=== PATIENT | female | born 1945 | race Caucasian/White ===

== ENCOUNTER 2021-12-28 13:28 | Inpatient (IN) | payer MEDICARE, BC ==
[~2021-12-28 13:28] MED LIST: Iopamidol 370 76% 100 ML VIAL ONE
[2021-12-28 13:47] LABS: #Eosinphils 0.1 thou/uL (0.0-0.7); #Lymphocytes 1.7 thou/uL (1.20-3.40); #Monocytes 0.3 thou/uL (0.11-0.59); #Neutrophils 2.7 thou/uL (1.40-6.50); %Basophils 0.6 % (0.0-1.0); %Eosinophils 1.2 % (0.0-10.0); %Lymphocytes 35.7 % (21.0-51.0); %Monocytes 7.1 % (0.0-10.0); %Neutrophils 55.5 % (42.0-75.0); Hemoglobin 13.1 g/dL (12.0-16.0); Mean Corpuscular HGB CONC 32.9 g/dL (32.0-36.0); Mean Corpuscular Hemoglobin 30.2 pg (27.0-31.0); Mean Corpuscular Volume 91.9 fL (78.0-98.0); Mean Platelet Volume 7.1 fL (7.4-10.4); Platelet Count 200 thou/uL (130-400); RBC Distribution Width 12.2 % (11.5-14.5); Red Blood Cell (RBC) Count 4.32 mill/uL (4.20-5.40); White Blood Cell (WBC) Count 4.8 thou/uL (4.8-10.8)
[2021-12-28] MEDS ORDERED: Atropine Sulfate 1 mg/10 ml Syringe ONE (13:51)
[2021-12-28] MEDS ORDERED: DOPamine 400 MG/D5W 250 ML 0 ML ONE (14:02)
[2021-12-28 14:03] LABS: PTT 24.3 sec (22.9-36.1); Prothrombin Time 13.1 sec (12.0-14.7)
[2021-12-28 14:09] LABS: ALT (SGPT) 48 U/L (8-55); AST (SGOT) 44 U/L (5-34); Albumin 4.3 g/dL (3.4-4.8); Alkaline Phosphatase 67 U/L (40-110); Anion Gap 19 mmol/L (10-20); BUN (Urea Nitrogen) 16 mg/dL (9.8-20.1); Bilirubin, Total 0.8 mg/dL (0.2-1.2); CK (CPK) 115 U/L (29-168); Calc. Creatinine Clearance 0 mL/min (70-130); Calcium 9.3 mg/dL (7.8-10.44); Carbon Dioxide 18 mmol/L (23-31); Chloride 104 mmol/L (98-107); Globulin 2.6 g/dL (2.4-3.5); Glucose 160 mg/dL (83-110); Lipase 23 U/L (8-78); Potassium 3.6 mmol/L (3.5-5.1); Protein, Total 6.9 g/dL (5.8-8.1); Sodium 137 mmol/L (136-145)
[2021-12-28] MEDS ORDERED: Nitroglycerin 100MG/250ML BOT 250 ML ONE (14:12)
[2021-12-28 14:17] LABS: #Eosinphils 0.1 thou/uL (0.0-0.7); #Lymphocytes 0.8 thou/uL (1.20-3.40); #Monocytes 0.3 thou/uL (0.11-0.59); #Neutrophils 3.9 thou/uL (1.40-6.50); %Basophils 0.6 % (0.0-1.0); %Eosinophils 1.2 % (0.0-10.0); %Lymphocytes 16.1 % (21.0-51.0); %Monocytes 5.3 % (0.0-10.0); %Neutrophils 76.8 % (42.0-75.0); Hemoglobin 12.5 g/dL (12.0-16.0); Mean Corpuscular HGB CONC 33.3 g/dL (32.0-36.0); Mean Corpuscular Hemoglobin 30.4 pg (27.0-31.0); Mean Corpuscular Volume 91.4 fL (78.0-98.0); Mean Platelet Volume 6.9 fL (7.4-10.4); Platelet Count 190 thou/uL (130-400); RBC Distribution Width 12.2 % (11.5-14.5); Red Blood Cell (RBC) Count 4.11 mill/uL (4.20-5.40); White Blood Cell (WBC) Count 5.1 thou/uL (4.8-10.8)
[2021-12-28] MEDS ORDERED: Nitroglycerin 50 MG/250 ML BOT 250 ML ONE (15:47)
[2021-12-28] MEDS ORDERED: Ondansetron PF 4 MG/2 ML Vial IVP PRN (15:55)
[2021-12-28] MEDS ORDERED: Ondansetron ODT 4 MG TAB PO PRN (15:55)
[2021-12-28] MEDS ORDERED: Senokot S 8.6-50 MG TAB PO PRN (15:55)
[2021-12-28] MEDS ORDERED: Aspirin 81 mg Enteric Coated Tablet PO SCH (16:00)
[2021-12-28] MEDS ORDERED: Clopidogrel Bisulfate 300 MG TAB PO SCH (16:00)
[2021-12-28] MEDS ORDERED: Acetaminophen/Codeine 30-300mg Tablet PO PRN ×2 (16:01)
[2021-12-28] MEDS ORDERED: Nitroglycerin 0.4 MG TAB (25 Tab Bottle) SL PRN (16:01)
[2021-12-28] MEDS ORDERED: Sodium Chloride 0.9% 200 ML IV PRN (16:01)
[2021-12-28 16:10] VITALS: BMI 25.0
[2021-12-28] MEDS ORDERED: Nitroglycerin 50 MG/250 ML BOT 250 ML IVPB SCH (16:30)
[2021-12-28] MEDS: Sodium Chloride 0.9% 1,000 ML IV SCH ×2 (16:43→22:24)
[2021-12-28 17:52] LABS: SARS-CoV-2 NAA Rapid Test Not Detected (NotDetected)
[2021-12-28] MEDS: Acetaminophen 325 MG TAB PO PRN ×2 (18:12→22:22)
[2021-12-28 18:52] LABS: Troponin I 0.542 ng/mL (< 0.028)
[2021-12-28] MEDS: traMADol HCl 50 MG TAB PO PRN (20:17)
[2021-12-28] MEDS: Lisinopril 5 MG TAB PO SCH (20:18)
[2021-12-28] MEDS: Famotidine 20 MG TAB PO SCH (20:19)
[2021-12-28] MEDS: Rosuvastatin 20 MG TAB PO SCH (20:19)
[2021-12-28] MEDS: Famotidine/PF 20 mg/2ml Vial SLOW IVP SCH (20:20)
[2021-12-29] MEDS: Acetaminophen 325 MG TAB PO PRN ×3 (02:19→17:26)
[2021-12-29 04:22] LABS: #Basophils 0.1 thou/uL (0.0-0.2); #Lymphocytes 0.9 thou/uL (1.20-3.40); #Monocytes 0.5 thou/uL (0.11-0.59); #Neutrophils 4.9 thou/uL (1.40-6.50); %Basophils 1.4 % (0.0-1.0); %Eosinophils 0.4 % (0.0-10.0); %Lymphocytes 14.6 % (21.0-51.0); %Monocytes 7.7 % (0.0-10.0); Hemoglobin 11.5 g/dL (12.0-16.0); Mean Corpuscular HGB CONC 34.1 g/dL (32.0-36.0); Mean Corpuscular Hemoglobin 31.4 pg (27.0-31.0); Mean Corpuscular Volume 91.9 fL (78.0-98.0); Mean Platelet Volume 6.6 fL (7.4-10.4); Platelet Count 178 thou/uL (130-400); RBC Distribution Width 12.1 % (11.5-14.5); Red Blood Cell (RBC) Count 3.67 mill/uL (4.20-5.40); White Blood Cell (WBC) Count 6.4 thou/uL (4.8-10.8)
[2021-12-29 04:29] LABS: Hemoglobin A1c 5.4 % (4.0-6.0)
[2021-12-29 04:46] LABS: ALT (SGPT) 42 U/L (8-55); AST (SGOT) 77 U/L (5-34); Albumin 3.6 g/dL (3.4-4.8); Alkaline Phosphatase 51 U/L (40-110); Anion Gap 13 mmol/L (10-20); BUN (Urea Nitrogen) 11 mg/dL (9.8-20.1); Bilirubin, Total 0.7 mg/dL (0.2-1.2); Calc. Creatinine Clearance 72 mL/min (70-130); Calcium 8.3 mg/dL (7.8-10.44); Carbon Dioxide 21 mmol/L (23-31); Cardiac Risk 3.3 (Less than 4.5); Chloride 104 mmol/L (98-107); Cholesterol 168 mg/dl (< 200 Desired); Globulin 2.1 g/dL (2.4-3.5); Glucose 125 mg/dL (83-110); HDL Cholesterol 51 mg/dL (>60 Neg Risk); LDL Cholesterol, Calculated 100 mg/dL; Potassium 3.5 mmol/L (3.5-5.1); Protein, Total 5.7 g/dL (5.8-8.1); Sodium 134 mmol/L (136-145); Triglycerides 84 mg/dL (Less than 150)
[2021-12-29] MEDS ORDERED: Ketorolac Tromethamine 30 MG/ML VIAL IVP SCH ×2 (08:45→15:45)
[2021-12-29 09:20] LABS: Troponin I 10.765 ng/mL (< 0.028)
[2021-12-29] MEDS: Lisinopril 5 MG TAB PO SCH ×2 (09:37→20:45)
[2021-12-29] MEDS: Clopidogrel Bisulfate 75 MG TAB PO SCH (09:37)
[2021-12-29] MEDS: Aspirin 81 mg Enteric Coated Tablet PO SCH (09:38)
[2021-12-29] MEDS: Famotidine 20 MG TAB PO SCH ×2 (09:38→20:45)
[2021-12-29] MEDS: Famotidine/PF 20 mg/2ml Vial SLOW IVP SCH (09:45)
[2021-12-29] MEDS: Rosuvastatin 20 MG TAB PO SCH (20:44)
[2021-12-30] MEDS: Levothyroxine 175 MCG TAB PO SCH (05:27)
[2021-12-30] MEDS: Lisinopril 5 MG TAB PO SCH ×2 (09:00→22:03)
[2021-12-30] MEDS: Aspirin 81 mg Enteric Coated Tablet PO SCH (09:00)
[2021-12-30] MEDS: Famotidine 20 MG TAB PO SCH ×2 (09:00→22:08)
[2021-12-30] MEDS: Clopidogrel Bisulfate 75 MG TAB PO SCH (09:01)
[2021-12-30] MEDS: Enoxaparin Sodium 30 MG/0.3 ML SYRINGE SC SCH (09:01)
[2021-12-30] MEDS: Acetaminophen 325 MG TAB PO PRN ×2 (12:30→22:04)
[2021-12-30] MEDS: Rosuvastatin 20 MG TAB PO SCH (22:03)
[2021-12-31] MEDS: Levothyroxine 175 MCG TAB PO SCH (06:12)
[2021-12-31] MEDS: Aspirin 81 mg Enteric Coated Tablet PO SCH (10:01)
[2021-12-31] MEDS: Lisinopril 5 MG TAB PO SCH ×2 (10:01→21:53)
[2021-12-31] MEDS: Famotidine 20 MG TAB PO SCH ×2 (10:01→21:52)
[2021-12-31] MEDS: Clopidogrel Bisulfate 75 MG TAB PO SCH (10:01)
[2021-12-31] MEDS: Enoxaparin Sodium 30 MG/0.3 ML SYRINGE SC SCH (10:04)
[2021-12-31] MEDS: Rosuvastatin 20 MG TAB PO SCH (21:53)
[2021-12-31] MEDS: Acetaminophen 325 MG TAB PO PRN (21:55)
[2022-01-01] MEDS ORDERED: Levothyroxine 150 MCG TAB PO SCH (09:30)
[2022-01-01 09:46] LABS: #Eosinphils 0.2 thou/uL (0.0-0.7); #Lymphocytes 1.3 thou/uL (1.20-3.40); #Monocytes 0.4 thou/uL (0.11-0.59); %Basophils 0.9 % (0.0-1.0); %Eosinophils 4.9 % (0.0-10.0); %Lymphocytes 32.5 % (21.0-51.0); %Neutrophils 52.6 % (42.0-75.0); Hemoglobin 12.6 g/dL (12.0-16.0); Mean Corpuscular HGB CONC 32.8 g/dL (32.0-36.0); Mean Corpuscular Hemoglobin 30.3 pg (27.0-31.0); Mean Corpuscular Volume 92.6 fL (78.0-98.0); Mean Platelet Volume 7.1 fL (7.4-10.4); Platelet Count 185 thou/uL (130-400); RBC Distribution Width 12.2 % (11.5-14.5); Red Blood Cell (RBC) Count 4.16 mill/uL (4.20-5.40); White Blood Cell (WBC) Count 3.8 thou/uL (4.8-10.8)
[2022-01-01 10:09] LABS: Anion Gap 14 mmol/L (10-20); BUN (Urea Nitrogen) 8 mg/dL (9.8-20.1); Calc. Creatinine Clearance 64 mL/min (70-130); Calcium 9.1 mg/dL (7.8-10.44); Carbon Dioxide 25 mmol/L (23-31); Chloride 106 mmol/L (98-107); Glucose 102 mg/dL (83-110); Potassium 3.7 mmol/L (3.5-5.1); Sodium 141 mmol/L (136-145)
[2022-01-01] MEDS: Lisinopril 5 MG TAB PO SCH ×2 (10:15→19:37)
[2022-01-01] MEDS: Aspirin 81 mg Enteric Coated Tablet PO SCH (10:15)
[2022-01-01] MEDS: Enoxaparin Sodium 30 MG/0.3 ML SYRINGE SC SCH (10:15)
[2022-01-01] MEDS: Famotidine 20 MG TAB PO SCH ×2 (10:15→19:37)
[2022-01-01] MEDS: Clopidogrel Bisulfate 75 MG TAB PO SCH (10:15)
[2022-01-01] MEDS: Levothyroxine 175 MCG TAB PO SCH (10:17)
[2022-01-01] MEDS ORDERED: Nitroglycerin 0.4 MG TAB (25 Tab Bottle) ONE (12:23)
[2022-01-01] MEDS ORDERED: Sodium Chloride 0.9% 500 ML IV SCH (12:45)
[2022-01-01] MEDS: Nitroglycerin 2% Ointment 1 INCH/1 GM Packet TOP SCH ×2 (14:29→22:25)
[2022-01-01] MEDS: Acetaminophen 325 MG TAB PO PRN (19:37)
[2022-01-01] MEDS: Rosuvastatin 20 MG TAB PO SCH (19:37)
[2022-01-02] MEDS: Acetaminophen 325 MG TAB PO PRN ×2 (01:56→16:36)
[2022-01-02] MEDS: Levothyroxine 150 MCG TAB PO SCH (05:59)
[2022-01-02] MEDS: Nitroglycerin 2% Ointment 1 INCH/1 GM Packet TOP SCH ×2 (05:59→14:52)
[2022-01-02] MEDS ORDERED: CEFAZOLIN 1 GM VIAL ONE (08:26)
[2022-01-02] MEDS ORDERED: Gentamicin 80 MG/2 ML VIAL ONE (08:26)
[2022-01-02] MEDS ORDERED: ceFAZolin 2 GM/Dextrose 50 ML IVPB ONE (08:26)
[2022-01-02] MEDS ORDERED: Lidocaine 1% (PF) 30 ML VIAL ONE (08:28)
[2022-01-02] MEDS ORDERED: Midazolam HCl 2 mg/2 ml Vial ONE (09:20)
[2022-01-02] MEDS ORDERED: Fentanyl 100 MCG/2 ML VIAL ONE (09:20)
[2022-01-02] MEDS: Aspirin 81 mg Enteric Coated Tablet PO SCH (11:27)
[2022-01-02] MEDS: Clopidogrel Bisulfate 75 MG TAB PO SCH (11:28)
[2022-01-02] MEDS: Famotidine 20 MG TAB PO SCH ×2 (11:28→21:58)
[2022-01-02] MEDS: Lisinopril 5 MG TAB PO SCH ×2 (11:28→21:58)
[2022-01-02] MEDS ORDERED: Iopamidol 370 76% 50 ML VIAL FS ONE (11:59)
[2022-01-02] MEDS: traMADol HCl 50 MG TAB PO PRN (14:52)
[2022-01-02] MEDS: Rosuvastatin 20 MG TAB PO SCH (21:58)
[2022-01-03] MEDS: Acetaminophen 325 MG TAB PO PRN ×2 (01:36→09:15)
[2022-01-03] MEDS: Nitroglycerin 2% Ointment 1 INCH/1 GM Packet TOP SCH ×2 (01:39→07:08)
[2022-01-03] MEDS: Levothyroxine 150 MCG TAB PO SCH (07:13)
[2022-01-03] MEDS: Clopidogrel Bisulfate 75 MG TAB PO SCH (09:14)
[2022-01-03] MEDS: Aspirin 81 mg Enteric Coated Tablet PO SCH (09:15)
[2022-01-03] MEDS: Lisinopril 5 MG TAB PO SCH ×2 (09:15→20:27)
[2022-01-03] MEDS: Famotidine 20 MG TAB PO SCH ×2 (09:15→20:27)
[2022-01-03] MEDS: Rosuvastatin 20 MG TAB PO SCH (20:27)
[2022-01-04] MEDS: Levothyroxine 150 MCG TAB PO SCH (05:14)
[2022-01-04] MEDS: Lisinopril 5 MG TAB PO SCH (08:31)
[2022-01-04] MEDS: Famotidine 20 MG TAB PO SCH (08:31)
[2022-01-04] MEDS: Clopidogrel Bisulfate 75 MG TAB PO SCH (08:31)
[2022-01-04] MEDS: Aspirin 81 mg Enteric Coated Tablet PO SCH (08:31)
[2022-01-04 11:18] VITALS: BP 132/63; TEMP 98.2
== END 2022-01-04 12:20 | disposition home or self-care (01) | DRG 242 ==
LOC: ERS 13:28 → CCL 14:23 → CCU 14:24 → 2NO 12-30 15:51 → IMCU/EMU 01-01 12:30 → 2SW 01-02 19:08
PROVIDERS: ADMIT Internal Medicine Cardiovascular Disease; ATTEND Internal Medicine
PROC: B2151ZZ Fluoroscopy of Left Heart using Low Osmolar Contrast (ICD-10-PCS; 2021-12-28)
PROC: 4A023N7 Measurement of Cardiac Sampling and Pressure, Left Heart, Percutaneous Approach (ICD-10-PCS; 2021-12-28)
PROC: B2111ZZ Fluoroscopy of Multiple Coronary Arteries using Low Osmolar Contrast (ICD-10-PCS; 2021-12-28)
PROC: 0JH606Z Insertion of Pacemaker, Dual Chamber into Chest Subcutaneous Tissue and Fascia, Open Approach (ICD-10-PCS; principal; 2022-01-02)
PROC: 02HK0JZ Insertion of Pacemaker Lead into Right Ventricle, Open Approach (ICD-10-PCS; 2022-01-02)
PROC: 02H60JZ Insertion of Pacemaker Lead into Right Atrium, Open Approach (ICD-10-PCS; 2022-01-02)
DX: I21.19 ST elevation (STEMI) myocardial infarction involving other coronary artery of inferior wall (principal); I46.9 Cardiac arrest, cause unspecified; I47.1 Supraventricular tachycardia; Z20.822 Contact with and (suspected) exposure to COVID-19; I10 Essential (primary) hypertension; E03.9 Hypothyroidism, unspecified; I25.10 Atherosclerotic heart disease of native coronary artery without angina pectoris; R00.1 Bradycardia, unspecified; Z88.5 Allergy status to narcotic agent; Z79.890 Hormone replacement therapy; Z79.899 Other long term (current) drug therapy
CPT/HCPCS: 33208; 36415; 36416; 70450; 71045; 75820; 80048; 80053; 80061; 82550; 83036; 83690; 83735; 84443; 84484; 85025; 85347; 85610; 85730; 93005; 93010; 93306; 93458; 93798; 93880; 94760; 99152; 99153; C1785; C1898; J0461; J0690; J1265; J1580; J1650; J1885; J2001; J2250; J2405; J3010; J7030; J7050; Q9967; U0002